=== PATIENT | female | born 1990 | race Caucasian/White ===

== ENCOUNTER 2018-03-23 07:22 | Inpatient (IN) | payer OTHER ==
[~2018-03-23] VITALS: Ht 157.5 cm; Wt 101.2 kg
[2018-03-23] VITALS (8 sets, daily range): BP systolic 108–149; BP diastolic 58–105; Ht 157.5 cm; Wt 101.2 kg
[2018-03-23] MEDS ORDERED: FAMOTIDINE 20 MG/50 ML PREMIX IVPB ONE (07:30)
[2018-03-23] MEDS ORDERED: METOCLOPRAMIDE 10 MG/2 ML SDV IVP ONE (07:30)
[2018-03-23] MEDS ORDERED: cefOXitin/DEX(*) 2GM/50ML PREM 50 ML IVPB ONE (07:30)
[2018-03-23] MEDS ORDERED: LIDOCAINE/SOD BICARB 8.4% SYR ONE (07:57)
[2018-03-23 08:26] LABS: PLATELET COUNT, AUTOMATED 263 K/uL (150-450)
[2018-03-23] MEDS: LR(*) 1000 ML BAG 1,000 ML IV SCH ×4 (08:51→21:20)
[2018-03-23] MEDS ORDERED: ONDANSETRON 4 MG/2 ML VIAL ONE (09:31)
[2018-03-23] MEDS ORDERED: fentaNYL CITR 100 MCG/2 ML AMP ONE (09:31)
[2018-03-23] MEDS ORDERED: OXYTOCIN 10 UNIT/ML SDV ONE (09:31)
[2018-03-23] MEDS ORDERED: MORPHINE PF 5 MG/10 ML AMP ONE (09:31)
--- NOTE | 2018-03-23 10:13 | History & Physical ---
History of Present Illness Age of Patient: 28 : 4 Para or TPAL: 0 EDC per U/S: Apr 13, 2018 Estimated Gestational Age: 37.0 Chief Complaint Twins History of Present Illness Presents for scheduled c/s for twins, di/di. has been entirely uncomplicated for twins. She has been followed closely for complications and growth and has done well. Babies last seen were vtx/br and she elected to deliver by . She is Rh negative and GBS negative. Past Medical, Surgical, Family and Obstetric Histories reviewed. Please see [facility] [place]. History Patient's Blood Type: O Negative Past Medical History: cholycystectomy Allergies: Coded Allergies: benzene (Verified Allergy, Mild, Rash, 03/23/18) Review of Systems All Systems Reviewed/Normal: Yes, Except as Noted Exam General Exam Vital Signs Vital Signs Date Time Temp Pulse Resp B/P (MAP) Pulse Ox O2 Delivery O2 Flow Rate FiO2 03/23/18 08:30 98.0 96 18 149/105 (120) 94 Room Air General Apperance: Alert/Awake/No Acute Distress Neuro: No Gross deficits Cardiovascular: Regular Rate and Rhythm Respiratory: No Respiratory Distress, Clear to Auscultation Abdomen: Soft, Non-Tender, Non-Distended, Gravid - Non-Tender Integumentary: Skin Intact without Lesions or Rash Psychological: Alert & Oriented X3, Appropriate Mood & Affect Fetus Heart Tone Variabilty: Moderate FHT Category: I Medical Decision Making Data Points Result Diagram: 03/23/18 0812 VTE Prophylasis: Adult Deep Vein Thrombosis/Pulmonary: No Pharmacological Contraindicati: Pt at Low Risk for VTE Mechanical Contraindications: Pt at Low Risk for VTE Assessment and Plan Problems: (1) Twin , dichorionic/diamniotic, third trimester Assessment & Plan: delivery by c/s as planned. Reviewed r/b/a and expected recovery. ISAIAH CONNOR MD Mar 23, 2018 10:13
[2018-03-23] MEDS ORDERED: DLR(*) 1000 ML BAG 1,000 ML IV PRN (10:14)
[2018-03-23] MEDS ORDERED: OXYTOCIN 30 UNIT/D5LR 500 ML 500 ML IV PRN (10:14)
[2018-03-23] MEDS ORDERED: ZOLPIDEM TARTRATE 5 MG TAB PO PRN (10:15)
[2018-03-23] MEDS ORDERED: PROMETHAZINE 25 MG/ML 1 ML AMP IVP PRN (10:15)
[2018-03-23] MEDS ORDERED: ACETAMINOPHEN 325 MG TAB PO PRN (10:15)
[2018-03-23] MEDS ORDERED: ONDANSETRON 4 MG/2 ML VIAL IV PRN (10:15)
[2018-03-23] MEDS ORDERED: SIMETHICONE 80 MG CHEW CHEW PRN (10:15)
--- NOTE | 2018-03-23 11:36 | Post Operative Note ---
Operative Note - PLATE CUTTER Operative Day Date: Mar 23, 2018 Time: 11:30 Physicians Surgeon: Michela Monogram Machine Operator: Iqra Gatica Anesthesia: spinal Diagnosis Pre-Op Diagnosis: twins, di/di Post-Op Diagnosis: same Procedure Findings: vtx/breech Procedure(s): Primary LTCS Specimen Removed:(Maybe N/A): placenta Complications: none [id number] Fluids Fluids: 1200 ml Estimated Blood Loss: 500 ml Dictated Date OP Note Dictated: Mar 23, 2018 Time OP Note Dictated: 11:31 Copies to: ISAIAH CONNOR MD ; ISAIAH CONNOR MD Mar 23, 2018 11:36
--- NOTE | 2018-03-23 12:00 | Anesthesia OB Pre-Anes Eval ---
History of Present Illness Anesthesia Start Date: Mar 23, 2018 Anesthesia Start Time: 10:08 OB Anesthesia Diagnosis: primary c/section, other (Twins) EDC: Apr 13, 2018 : 4 Para: 0 Vital Signs: Vital Signs 03/23/18 08:30 Temp 98.0 Pulse 96 Resp 18 B/P (MAP) 149/105 (120) Pulse Ox 94 O2 Delivery Room Air Pain Ratin Result Diagram: 03/23/18 0812 Height (Inches): 62.00 Weight (Pounds): 223 BMI (kg/m2): 42.60 Past Medical History Medical History: no pertinent history Surgical History: cholecystectomy Previous Anesthesia: general Attended Childbirth Classes?: No Hx Anesthesia Reactions: No Hx Family Anesthesia Reaction: No Allergies: Coded Allergies: benzene (Verified Allergy, Mild, Rash, 03/23/18) Anesthesia OB ROS Neurological: No migraines/headaches, No seizures, No neuropathy, No other ENT: Denies Tooth caps, Denies Loose teeth, Denies Chipped teeth, Denies Dentures, Denies Bridges, Denies Retainers, Denies Veneers, Denies Implants, D enies Tongue ring, Denies Other Pulmonary: No asthma, No smoker (pks/day/yrs), No other Airway Class: ll Cardiovascular ROS: No edema, No arrhythmia, No other GI ROS: NPO Last Solids Date: Mar 22, 2018 Last Solids Time: 23:30 ROS: No Herpes, No STD(s), No Liver Disease, No Renal Disease, No Other Endocrine ROS: No diabetes, No gestational diabetes, No thyroid disorder, No other Musculoskeletal ROS: No low back pain, No low back injury, No scoliosis, No other ASA Classification: 3 Assessment and Plan Anesthesia Plan: SAB Anesthesia Stop Day: Mar 23, 2018 Anesthesia Stop Time: 11:48 ROCKY LANDEROS CRNA Mar 23, 2018 12:00
--- NOTE | 2018-03-23 12:08 | OPERATIVE REPORT 1 ---
EVENT DATE: March 23, 2018 SURGEON: Shakir Abernathy MD ANESTHESIOLOGIST: ANESTHESIA: Spinal by Hilary Lee CRNA CREAM SEPARATOR OPERATOR: MARION Hooks PREOPERATIVE DIAGNOSES 1. Twin gestation at 37 weeks, diamniotic dichorionic. 2. Vertex breech presentation. POSTOPERATIVE DIAGNOSES 1. Twin gestation at 37 weeks, diamniotic dichorionic. 2. Vertex breech presentation. PROCEDURE PERFORMED Primary low transverse section via Pfannenstiel skin incision. ESTIMATED BLOOD LOSS 500 cc's. FLUIDS 1200 cc's IV crystalloids. FINDINGS Baby A was vertex along the maternal right side. Baby B was breech along maternal left but delivered in the vertex presentation after A was delivered. Normal appearing uterus, tubes and ovaries. PROCEDURE IN DETAIL The patient was brought to the operating room with a working IV and spinal anesthetic was administered. She was then placed in the dorsal supine position with a leftward tilt and prepped and draped in the usual sterile fashion. Using a knife, a Pfannenstiel skin incision was made and carried through to the underlying rectus fascia. This was nicked in the midline and extended laterally with the James scissors. The rectus muscles were then dissected off the underlying rectus fascia using sharp dissection and then in the midline. The peritoneum was entered sharply and extended superiorly and inferiorly, taking care to avoid injury to the underlying bladder. It was put on lateral stretch. The bladder blade was inserted. The vesicouterine peritoneum was entered sharply and extended laterally. Bladder flap was created digitally. The bladder blade was reinserted, exposing the lower uterine segment of the uterus, which received a low transverse incision carried through to the intraamniotic space. Clear fluid upon amniotomy. The incision was extended bluntly and hand was inserted. The 's head was elevated to the incision. Fundal pressure was applied and the 's head delivered atraumatically. The mouth and nose were bulb suctioned followed by further fundal pressure, effecting delivery of the shoulders and the remainder of the followed without difficulty. Mouth and nose were again bulb suctioned. The cord was clamped, cut and the was passed to awaiting resuscitation team. A cord sample was obtained. Attention was then turned to twin B. My hand was inserted into the uterus and the was encountered in the vertex presentation, having dropped forward after deliver of twin A. Therefore, the baby was further assisted into the vertex presentation and fundal pressure was applied to maintain the head in that location while the amniotomy was performed with clear fluid. Hand was inserted. The 's head was elevated to the incision and then further fundal pressure effected delivery of the head, which was bulb suctioned at the mouth and nose. Further fundal pressure effected delivery of the shoulders and the remainder of the followed. There was a nuchal cord x1 on this and nuchal cord x2 on A. The mouth and nose were further bulb suctioned. The cord was clamped, cut and infant was passed to the awaiting resuscitation team. Cord sample was obtained. The placenta was delivered manually. The uterus was then exteriorized and cleared of all clots and debris. Mederos clamps were placed for hemostasis while the uterine repair was performed with a #1 Monocryl in a running locking stitch. A second suture of the same type was used to imbricate the first layer, completing a two layer closure. This was hemostatic upon completion. The posterior cul-de-sac was irrigated, swept clear of clots and debris. The uterus was returned to the abdomen and bilateral pelvic gutters were irrigated and swept clear of clots and debris. The parietal peritoneum was repaired using 3-0 Vicryl in a running and nonlocking stitch. Rectus muscles were reapproximated in the midline with the same stitch. Muscle bellies were inspected and found to be hemostatic. A few capillary bleeders were cauterized. The rectus fascia was repaired using 0 Vicryl in a running and nonlocking stitch. Subcuticular space was irrigated and swept clean of clots and debris. Capillary bleeders were cauterized while the space was closed with a 3-0 Vicryl Plus in a running nonlocking stitch. Skin incision was repaired with 4-0 Monocryl simple subdermal and covered with Dermabond skin adhesive. She tolerated the procedure well. Sponge, lap, needle and instrument counts were all correct x3. She was taken to recovery in stable condition. YVETTE
[2018-03-23] MEDS ORDERED: PNV1COMB5 (15:20)
[2018-03-23] MEDS ORDERED: FOLI0.8T29 PO (15:20)
[2018-03-23] MEDS ORDERED: IRON1TAB10 PO (15:20)
[2018-03-23] MEDS: KETOROLAC 30 MG/ML VIAL IVP SCH (18:00)
[2018-03-23] MEDS ORDERED: FUROSEMIDE 20 MG/2 ML VIAL IVP ONE (21:20)
[2018-03-23] MEDS: FAMOTIDINE 20 MG TAB PO SCH (21:42)
[2018-03-23] MEDS: DOCUSATE CALCIUM 240 MG CAP PO SCH (21:42)
[2018-03-24 00:20] VITALS: BP 126/84
[2018-03-24] MEDS: KETOROLAC 30 MG/ML VIAL IVP SCH (00:21)
[2018-03-24 02:58] VITALS: BP 117/67
[2018-03-24] MEDS ORDERED: FUROSEMIDE 20 MG/2 ML VIAL IVP ONE (03:30)
[2018-03-24] MEDS: LR(*) 1000 ML BAG 1,000 ML IV SCH ×2 (05:42→10:40)
[2018-03-24] MEDS: IBUPROFEN 800 MG TAB PO SCH ×3 (05:57→21:50)
[2018-03-24 07:08] LABS: PLATELET COUNT, AUTOMATED 234 K/uL (150-450)
[2018-03-24] MEDS: DOCUSATE CALCIUM 240 MG CAP PO SCH ×2 (09:00→20:15)
[2018-03-24] MEDS ORDERED: DIPHTH/TETANUS/ACEL. PERTUSSIS IM ONLY ONE (09:00)
[2018-03-24] MEDS ORDERED: MEASLES,MUMP,RUBELLA VAC 0.5ML SUBQ ONE (09:00)
[2018-03-24] MEDS: FAMOTIDINE 20 MG TAB PO SCH ×2 (09:00→20:15)
[2018-03-24] MEDS ORDERED: INFLUENZA VIRUS VAC 0.5ML SYR IM ONLY ONE (09:00)
[2018-03-24] MEDS: LANOLIN OINT 7 GM TUBE TP PRN (09:01)
[2018-03-24 10:21] VITALS: BP 124/81
--- NOTE | 2018-03-24 10:24 | OB/GYN Progress Note ---
OB Subjective Progress Notes Subjective Feeling well. Pain controlled and ambulating well. Pena removed but no void yet. Baby boy in nursery but improving. Baby girl in room doing well. Mom had low UO last night but resolved with Lasix. Hgb levels anemic but she is asymptomatic and vital stable. GI: NEG Nausea : Voiding Well Pain: Mild OB Objective Physical Exam Vital Signs Date Time Temp Pulse Resp B/P (MAP) Pulse Ox O2 Delivery O2 Flow Rate FiO2 03/24/18 02:58 98.4 81 16 117/67 (84) 97 Nasal Cannula 0.5 Intake and Output 03/24/18 07:00 Intake Total 2000 ml Output Total 4620 ml Balance -2620 ml Intake Oral 0 ml IV Total 2000 ml Output Urine Total 4120 ml Estimated Blood Loss 500 ml General Appearance: Alert/Awake/No Acute Distress Neurological: No Gross deficits Cardiovascular: Normal Rhythm & Peripheral Pulses, Regular Rate and Rhythm Respiratory: No Respiratory Distress, Clear to Auscultation Abdomen: Soft, Non-Tender, Non-Distended, Fundus Firm, Non-Tender Incision: Clean, Dry, Intact Extremities: Edema Integumentary: Skin Intact without Lesions or Rash Psychological: Alert & Oriented X3, Appropriate Mood & Affect Result Diagram: 03/24/18 0634 Assessment and Plan [employer] Plan: Routine Post- Care, Routine Post-Op Care Problems: (1) Twin , dichorionic/diamniotic, third trimester (2) Other specified aftercare following surgery Assessment & Plan: Hopefully home tomorrow or Monday. (3) Anemia due to acute blood loss Assessment & Plan: Pt stable and asymptomatic. Mostly dilutional in my opinion. Will monitor symptoms. ISAIAH CONNOR MD Mar 24, 2018 10:24
--- NOTE | 2018-03-24 12:51 | Anesthesia Post Eval Note ---
Anesthesia Post Eval Note Vital Signs Date Time Temp Pulse Resp B/P (MAP) Pulse Ox O2 Delivery O2 Flow Rate FiO2 03/24/18 10:21 98.6 74 18 124/81 (95) 97 Nasal Cannula 0.5 Pt able to participate in Eval: Yes Cardiovascular Status: Satisfactory Respiratory Status: Satisfactory Pain Managment: Satisfactory PO Nausea/Vomiting: Satisfactory Temperature Management: Satisfactory Mental Status: Satisfactory, Alert, Oriented X3 Post-Op Hydration Status: Satisfactory, Tolerating PO Well, Voiding w/o Difficulty Anesthesia Type: SAB Anesthesia Tolerance: Tolerated procedure well without apparent anesthetic complications. Denies headache or any residual paresthesia. Vital Signs Stable, Patient comfortable and condition stable. Pt. is up to nursery to see baby boy. Ambulating per wc. with assistance. RODOLFO GEORGE CRNA Mar 24, 2018 12:51
[2018-03-24 13:22] VITALS: BP 146/96
[2018-03-24 16:21] VITALS: BP 140/88
[2018-03-24 19:57] VITALS: BP 143/86
[2018-03-25] VITALS (8 sets, daily range): BP systolic 130–156; BP diastolic 78–92
[2018-03-25] MEDS ORDERED: diphenhydrAMINE 25 MG CAP PO PRN ×2 (03:05→04:30)
[2018-03-25] MEDS: IBUPROFEN 800 MG TAB PO SCH ×3 (06:47→21:25)
[2018-03-25] MEDS ORDERED: FERROUS SULFATE 325 MG TAB PO ONE (09:55)
--- NOTE | 2018-03-25 10:10 | OB/GYN Progress Note ---
OB Subjective Progress Notes Subjective Feeling well although tired. Able to ambulate and is passing gas. Abdomen is itchy but no Betadine was used. Benadryl was helpful last night. GI: NEG Nausea : Voiding Well Pain: Mild OB Objective Physical Exam Vital Signs Date Time Temp Pulse Resp B/P (MAP) Pulse Ox O2 Delivery O2 Flow Rate FiO2 03/25/18 07:15 77 98 Nasal Cannula 0.7 03/25/18 02:45 98.0 16 139/91 (107) Intake and Output 03/25/18 06:59 Intake Total 0 ml Output Total 1900 ml Balance -1900 ml Intake Oral 0 ml Output Urine Total 1900 ml # Voids 1 General Appearance: Alert/Awake/No Acute Distress Neurological: No Gross deficits Cardiovascular: Normal Rhythm & Peripheral Pulses, Regular Rate and Rhythm Respiratory: No Respiratory Distress, Clear to Auscultation Abdomen: Soft, Non-Tender, Non-Distended, Fundus Firm, Non-Tender Incision: Clean, Dry, Intact Extremities: Edema Integumentary: Skin Intact without Lesions or Rash Psychological: Alert & Oriented X3, Appropriate Mood & Affect Result Diagram: 03/24/18 0634 Assessment and Plan Problems: (1) Twin , dichorionic/diamniotic, third trimester (2) Other specified aftercare following surgery Assessment & Plan: Remove IV today and continue ambulating and assisting care. Baby B (boy) back to room but with O2. Will need more time so she may be discharged to room in tomorrow. (3) Anemia due to acute blood loss Assessment & Plan: Add iron to oral medications. Continue x 6 weeks. ISAIAH CONNOR MD Mar 25, 2018 10:10
[2018-03-25] MEDS ORDERED: IBUP800T37 PO (10:12)
[2018-03-25] MEDS ORDERED: PER PO (10:12)
[2018-03-25] MEDS: FAMOTIDINE 20 MG TAB PO SCH ×2 (10:58→21:25)
[2018-03-25] MEDS: DOCUSATE CALCIUM 240 MG CAP PO SCH ×2 (10:58→21:25)
[2018-03-25] MEDS: [UNRECOGNIZED DRUG - OTHER] TP SCH (21:25)
[2018-03-26 03:30] VITALS: BP 138/86
[2018-03-26] MEDS: IBUPROFEN 800 MG TAB PO SCH ×2 (06:14→14:18)
--- NOTE | 2018-03-26 08:41 | OB/GYN Progress Note ---
OB Subjective Progress Notes Subjective Doing well. No problems. GI: NEG Nausea : Voiding Well Pain: Mild OB Objective Physical Exam Vital Signs Date Time Temp Pulse Resp B/P (MAP) Pulse Ox O2 Delivery O2 Flow Rate FiO2 03/26/18 04:40 93 96 03/26/18 03:30 16 138/86 (103) Room Air 03/25/18 23:38 97.5 03/25/18 08:40 0.7 Intake and Output 03/26/18 07:00 Intake Total 240 ml Output Total 300 ml Balance -60 ml Intake Oral 240 ml Output Urine Total 300 ml # Voids 1 General Appearance: Alert/Awake/No Acute Distress Neurological: No Gross deficits Cardiovascular: Normal Rhythm & Peripheral Pulses, Regular Rate and Rhythm Respiratory: No Respiratory Distress, Clear to Auscultation Abdomen: Soft, Non-Tender, Non-Distended, Fundus Firm, Non-Tender Incision: Clean, Dry, Intact Extremities: Edema Integumentary: Skin Intact without Lesions or Rash Psychological: Alert & Oriented X3, Appropriate Mood & Affect Result Diagram: 03/24/18 0634 Assessment and Plan Problems: (1) Twin , dichorionic/diamniotic, third trimester (2) Other specified aftercare following surgery Assessment & Plan: Discharge today to room in. (3) Anemia due to acute blood loss ISAIAH CONNOR MD Mar 26, 2018 08:41
[2018-03-26] MEDS: FAMOTIDINE 20 MG TAB PO SCH (09:14)
[2018-03-26] MEDS: DOCUSATE CALCIUM 240 MG CAP PO SCH (09:14)
[2018-03-26] MEDS: [UNRECOGNIZED DRUG - OTHER] TP SCH (09:15)
[2018-03-26] MEDS: LANOLIN OINT 7 GM TUBE TP PRN ×2 (12:25→12:26)
== END 2018-03-26 19:09 | disposition home or self-care (01) | DRG 787 ==
LOC: OB 07:22
PROVIDERS: ADMIT Obstetrics & Gynecology; ATTEND Obstetrics & Gynecology
PROC: 10D00Z1 Extraction of Products of Conception, Low, Open Approach (ICD-10-PCS; principal; 2018-03-23 09:30)
DX: O69.81X1 Labor and delivery complicated by cord around neck, without compression, fetus 1 (principal); O36.0130 Maternal care for anti-D [Rh] antibodies, third trimester, not applicable or unspecified; D62 Acute posthemorrhagic anemia; O69.81X2 Labor and delivery complicated by cord around neck, without compression, fetus 2; O30.043 Twin pregnancy, dichorionic/diamniotic, third trimester; O32.1XX2 Maternal care for breech presentation, fetus 2; O99.214 Obesity complicating childbirth; E66.9 Obesity, unspecified; O90.81 Anemia of the puerperium; Z3A.37 37 weeks gestation of pregnancy; Z37.2 Twins, both liveborn; Z90.49 Acquired absence of other specified parts of digestive tract
CPT/HCPCS: 36415; 85014; 85018; 85025; 86703; 86850; 86870; 86900; 86901; 88307; J0694; J1885; J1940; J2270; J2405; J2590; J2765; J3010; J3490; J7120; Q0163

== ENCOUNTER 2018-04-29 08:12 | Inpatient (IN) | payer OTHER ==
[2018-04-29] VITALS (12 sets, daily range): BP systolic 95–123; BP diastolic 61–77
[~2018-04-29] VITALS: Ht 157.5 cm; Wt 89.8 kg
[~2018-04-29 08:12] MED LIST: FOLI0.8T29 PO; IBUP800T37 PO; IRON1TAB10 PO; PER PO; PNV1COMB5
[2018-04-29] MEDS ORDERED: LR IV ONE (08:30)
--- NOTE | 2018-04-29 08:47 | EKG ---
FACILITY: [facility] PATIENT NAME: CASEY SIMPSON : [id number] MR: [id number] V: [id number] EXAM DATE: ORDERING PHYSICIAN: STEPHANE ARTIS TECHNOLOGIST: BASHIR Test Reason : SOB Blood Pressure : / mmHG Vent. Rate : 112 BPM Atrial Rate : 112 BPM P-R Int : 140 ms QRS Dur : 096 ms QT Int : 332 ms P-R-T Axes : 075 089 053 degrees QTc Int : 453 ms Sinus tachycardia Otherwise normal ECG No previous ECGs available Confirmed by Gael Stock ([id number] on 04/30/2018 12:19:27 AM Referred By: CHANDRA Confirmed By:Gael Myers
[2018-04-29 08:48] LABS: PLATELET COUNT, AUTOMATED 431 K/uL (150-450)
[2018-04-29] MEDS ORDERED: ALBUTEROL/IPRATROPIUM 3 ML NEB NEB ONE ×2 (09:10→12:10)
--- NOTE | 2018-04-29 09:10 | ER Report ---
History and Physical Time Seen By MD: 08:15 Hx. of Stated Complaint: Pt. SOB. O2 sat 75% on room air. Tachypneic. RR 36. Can't speak in full sentences. Tachy, HR 128. Pt. post , had twins via , Mar 23. HPI/ROS CHIEF COMPLAINT: Difficulty breathing HISTORY OF PRESENT ILLNESS: 28-year-old female is one month and uncomplicated twin delivery and is breast-feeding. She presents with shortness of breath in the face of recent URI, cough with productive green sputum. Shortness of breath began at 11:00 last night is continued and progressed throughout the night. She does not have chest pain. She has not had fever. She is somewhat lightheaded. She does not having abdominal pain, nausea, vomiting, UTI symptoms, leg swelling. She has never had a blood clot. She has not had similar symptoms in the past. She has needed an inhaler at times during her , and tried it 6 times overnight without success. REVIEW OF SYSTEMS: Constitutional: No fever, no chills. Eyes: No discharge. ENT: uri symptoms Cardiovascular: No chest pain, no palpitations. Respiratory: above Gastrointestinal: No abdominal pain, no vomiting. Genitourinary: No hematuria. Musculoskeletal: No back pain. Skin: No rashes. Neurological: No headache. Remainder of the 14 system rev: Yes Allergies: Coded Allergies: povidone-iodine (Verified Allergy, Intermediate, RASH, 04/29/18) soap (Verified Allergy, Intermediate, RASH, 04/29/18) Home Meds Reported Medications Albuterol Sulfate 90 Mcg/Act (PROAIR HFA 90 MCG/ACT) 8.5 Gm Hfa.aer.ad, 1-2 PUFF IH PRN PRN for SHORTNESS OF BREATH, INHALER 04/30/18 Ferrous Sulfate (FERROUS SULFATE) 325 Mg Tablet, 325 MG PO QDAY 04/30/18 Discontinued Reported Medications Folic Acid (FOLIC ACID) 0.8 Mg Tablet, 0.8 MG PO 03/23/18 Pnv #116/Iron Fumarate/Fa/Dha (EXPECTA COMBO PACK) 1 Each Combo..pkg 03/23/18 Discontinued Scripts Oxycodone/Acetaminophen (OXYCODONE/ACETAMINOPHEN 5MG/325 MG) 5 Mg/325 Mg Tab, 1- 2 TAB PO Q4H PRN for PAIN, #30 TAB 0 Refills Prov:ISAIAH CONNOR MD 03/25/18 Ibuprofen (IBUPROFEN) 800 Mg Tablet, 800 MG PO Q8H, #30 TAB 0 Refills Prov:ISAIAH CONNOR MD 03/25/18 Reviewed Nurses Notes: Yes Old Medical Records Reviewed: Yes Hx Smoking: No Smoking Status: Never Smoker Exposure to Second Hand Smoke?: No Constitutional Vital Sign - Last 24 Hours 04/29/18 04/29/18 04/29/18 04/29/18 08:18 08:20 08:22 08:27 Pulse 113 120 116 Resp 36 35 44 B/P (MAP) 141/83 141/83 (102) Pulse Ox 95 89 97 O2 Delivery Oxy Mask Oxy Mask O2 Flow Rate 5 04/29/18 04/29/18 04/29/18 04/29/18 08:32 08:37 08:42 08:47 Pulse 115 114 118 114 Resp 53 25 25 30 B/P (MAP) 129/83 (98) Pulse Ox 95 92 93 93 04/29/18 04/29/18 04/29/18 04/29/18 08:52 08:57 09:12 09:15 Pulse 113 109 Resp 26 40 B/P (MAP) 104/81 (89) Pulse Ox 94 95 96 04/29/18 04/29/18 04/29/18 04/29/18 09:17 09:22 09:24 09:24 Pulse 107 109 106 Resp 27 33 24 Pulse Ox 93 94 95 O2 Delivery Oxy Mask O2 Flow Rate 5.0 04/29/18 04/29/18 04/29/18 04/29/18 09:27 09:30 09:32 09:32 Pulse 107 120 118 Resp 24 20 32 B/P (MAP) 123/79 (94) Pulse Ox 97 97 04/29/18 04/29/18 04/29/18 04/29/18 09:37 09:42 09:45 09:47 Pulse 116 109 109 Resp 17 26 24 B/P (MAP) 129/85 (100) Pulse Ox 96 95 95 04/29/18 04/29/18 04/29/18 04/29/18 09:52 09:57 10:00 10:02 Pulse 117 109 111 Resp 19 25 24 B/P (MAP) 114/79 (91) Pulse Ox 93 92 92 04/29/18 04/29/18 04/29/18 04/29/18 10:07 10:12 10:15 10:17 Pulse 114 106 109 Resp 25 25 32 B/P (MAP) 119/82 (94) Pulse Ox 94 94 04/29/18 04/29/18 04/29/18 04/29/18 10:22 10:27 10:30 10:32 Pulse 76 108 111 Resp 32 35 33 B/P (MAP) 126/79 (95) Pulse Ox 94 94 91 04/29/18 04/29/18 04/29/18 04/29/18 10:52 10:57 11:00 11:02 Pulse 104 102 Resp 12 26 23 B/P (MAP) 119/77 (91) 04/29/18 04/29/18 04/29/18 04/29/18 11:07 11:12 11:15 11:17 Pulse 102 102 109 Resp 25 21 21 B/P (MAP) 109/84 (92) Pulse Ox 92 04/29/18 04/29/18 04/29/18 04/29/18 11:22 11:27 11:32 11:37 Pulse 103 103 104 101 Resp 24 28 23 24 Pulse Ox 91 90 91 90 04/29/18 04/29/18 04/29/18 04/29/18 11:42 11:45 11:47 11:52 Pulse 107 109 110 Resp 22 46 24 B/P (MAP) 130/83 (99) Pulse Ox 93 94 93 04/29/18 04/29/18 04/29/18 04/29/18 11:57 12:00 12:02 12:07 Pulse 107 107 107 Resp 26 84 49 B/P (MAP) 126/77 (93) Pulse Ox 93 92 93 04/29/18 12:12 Pulse 113 Resp 56 Pulse Ox 90 Physical Exam General Appearance: The patient is alert, has no immediate need for airway protection and no signs of toxicity. [ ] Eyes: Pupils equal and round no pallor or injection. ENT, Mouth: Mucous membranes are moist. Respiratory: rll ronchi, tachypneic Cardiovascular: tachycardia, no m/r/g, no pallor Gastrointestinal: Abdomen is soft and non tender, no masses, bowel sounds normal. Neurological: alert, oriented, reinoso Skin: Warm and dry, no rashes. Musculoskeletal: Neck is supple non tender. Extremities are nontender, nonswollen and have full range of motion. DIFFERENTIAL DIAGNOSIS: After history and physical exam differential diagnosis was considered for adult fever including but not limited to viral syndromes including influenza, urinary tract infection, pneumonia and sepsis, PE, acs Medical Decision Making Data Points Result Diagram: 04/30/18 0455 04/30/18 0455 Laboratory Hematology Test 04/29/18 08:25 04/29/18 08:37 D-Dimer Quantitative (PE/DVT) 1.13 ug/ml (0-0.50) Lactate 1.4 mmol/L (0.7-2.1) Influenza Virus Type A (PCR) Negative (NEGATIVE) Influenza Virus Type B (PCR) Negative (NEGATIVE) Chemistry Test 04/29/18 08:25 04/29/18 08:37 D-Dimer Quantitative (PE/DVT) 1.13 ug/ml (0-0.50) Lactate 1.4 mmol/L (0.7-2.1) Influenza Virus Type A (PCR) Negative (NEGATIVE) Influenza Virus Type B (PCR) Negative (NEGATIVE) Coagulation Test 04/29/18 08:25 D-Dimer Quantitative (PE/DVT) 1.13 ug/ml Microbiology Microbiology Date/Time Source Procedure Growth Status 04/29/18 08:51 Blood Blood Culture - Preliminary NO GROWTH AFTER 1 DAY, REINCUBATED Resulted 04/29/18 08:45 Blood Peripheral Draw Blood Culture - Preliminary NO GROWTH AFTER 1 DAY, REINCUBATED Resulted EKG/Imaging EKG Interpretation 12 lead EKG: Rhythm: sinus tachycardia [place]: normal QRS: normal ST segments: borderline st depression v4-6. Borderline qt [ ] Monitor Interpretation: Sinus Tachycardia ED Course/Re-evaluation ED Course 28-year-old female presents hypoxic, dyspneic with symptoms consistent with infectious etiology. After x-rays unremarkable so CT is ordered to evaluate for PE or subtle pneumonia. CT shows multilobar pneumonia, however given atypical appearance, including differential or septic emboli. Patient is continued on oxygen in the emergency department with 8 L of a Ventimask and tolerates this I administered broad-spectrum antibiotics for the potential for hospital-acquired pneumonia given her recent delivery. She is otherwise hemodynamically stable on admission to ICU. Decision to Disposition Date: Apr 29, 2018 Decision to Disposition Time: 09:10 Critical Care Time I spent a total of 65 minutes of critical care time in obtaining history, performing a physical exam, bedside monitoring of interventions, collecting and interpreting tests and discussion with consultants but not including time spent performing procedures. Depart Departure Latest Vital Signs Vital Signs Date Time Temp Pulse Resp B/P (MAP) Pulse Ox O2 Delivery O2 Flow Rate FiO2 04/29/18 12:12 113 56 90 04/29/18 12:00 126/77 (93) 04/29/18 09:24 Oxy Mask 5.0 Impression: Primary Impression: Pneumonia Condition: Condition Unchanged Disposition: Admitted from ER Referrals: ISAIAH CONNOR MD (PCP) Problem Qualifiers Primary Impression: Pneumonia Pneumonia type: due to unspecified organism Laterality: bilateral Lung location: unspecified part of lung Qualified Codes: J18.9 - Pneumonia, unspecified organism STEPHANE ARTIS MD Apr 29, 2018 09:10
[2018-04-29] MEDS ORDERED: methylPREDNIS SUCC 125 MG/2ML IVP ONE (09:15)
--- NOTE | 2018-04-29 09:27 | RADIOLOGY IMAGING REPORT ---
[place] [facility] [place] NAME: Monie Victor : 1990 MR: [id number] V: [id number] EXAM DATE: ORDERING PHYSICIAN: STEPHANE ARTIS TECHNOLOGIST: Location: [facility] Patient: Monie Victor : 1990 Visit/Account:[id number] Date of Sevice: 04/29/2018 EXAMINATION: PA and Lateral Chest 04/29/2018 8:28 AM HISTORY: dyspnea, decreased r sided breath sounds COMPARISON: None FINDINGS: Cardiomediastinal contours: Normal Lungs and pleura: Normal Bones/soft tissues: Normal Right upper quadrant cholecystectomy clips. IMPRESSION: No acute cardiopulmonary abnormality. Report Dictated By: Joseph Everett MD at 04/29/2018 9:21 AM Report E-Signed By: Joseph Everett MD at 04/29/2018 9:22 AM [id number]
[2018-04-29] MEDS ORDERED: IOPAMIDOL 76% 100 ML INFUS BTL 100 ML ONE (10:07)
[2018-04-29] MEDS ORDERED: NS(*) 0.9% 50 ML BAG 50 ML ONE (10:07)
[2018-04-29] MEDS ORDERED: diphenhydrAMINE 50 MG/ML VIAL IVP ONE (10:25)
--- NOTE | 2018-04-29 11:52 | RADIOLOGY IMAGING REPORT ---
FACILITY: [facility] PATIENT NAME: Monie Victor : 1990 MR: [id number] V: [id number] EXAM DATE: ORDERING PHYSICIAN: STEPHANE ARTIS TECHNOLOGIST: Location: [facility] Patient: Monie Victor : 1990 Visit/Account:[id number] Date of Sevice: 04/29/2018 CT CTA CHEST W & W/O CON HISTORY: tachypnea, hypoxia, elevated dimer TECHNIQUE: CTA chest with intravenous contrast attention to pulmonary arteries. Sagittal, coronal a nd slab 3D MIP coronal reconstructed images were also created for further evaluation and interpretati on. CONTRAST: Iopamidol 370 100 mls. One of the following dose optimization techniques was utilized in the performance of this exam: Autom ated exposure control; adjustment of the mA and/or kV according to the patient's size; or use of an i terative reconstruction technique. Specific details can be referenced in the facility's radiology C T exam operational policy. COMPARISON: Chest x-ray April 29, 2018. FINDINGS: Heart/coronary vessels: The heart is normal. There is no pericardial effusion. Pulmonary arteries: There are no filling defects in the pulmonary vessels to suggest pulmonary embolu s. Thoracic aorta: No aortic dissection or atherosclerotic change. Mediastinum: There is a small hiatal hernia. There is no mediastinal or hilar lymphadenopathy. The t hyroid gland is unremarkable. Lymph nodes: Negative. Lungs/pleura: There is an infiltrate in the lingula. Smaller infiltrates or focal densities are note d in the right middle lobe, right upper lobe, superior segment of the right lower lobe and perhaps th e superior segment of the left lower lobe. There is no pleural effusion. Visualized upper abdomen: Surgical clips are noted in the gallbladder fossa related to prior cholecy stectomy. Bones/soft tissues: No vertebral body compression fracture is seen. IMPRESSION: 1. No findings of a filling defect in the pulmonary arteries to suggest pulmonary embolus. 2. Scattered foci of lung parenchymal density worrisome for pneumonia or alternative sites of multifo robert disease such as Marisabel's granulomatosis, septic emboli, alveolitis of undefined etiology, pulmon lloyd hemorrhage, etc. There is no pleural effusion or lymphadenopathy. There is no interstitial lung d isease. 3. Status post cholecystectomy. Results were called to STEPHANE ARTIS M.D. At 04/29/2018 11:04 AM. Report Dictated By: Joaquin Lua MD at 04/29/2018 10:59 AM Report E-Signed By: Joaquin Lua MD at 04/29/2018 11:48 AM WSN:[id number]
[2018-04-29] MEDS ORDERED: CEFEPIME HCL 2 GM VIAL IVP ONE (12:00)
[2018-04-29] MEDS ORDERED: ACETAMINOPHEN 325 MG TAB PO PRN (16:20)
[2018-04-29] MEDS ORDERED: LR(*) 1000 ML BAG 1,000 ML IV ONE (16:20)
[2018-04-29] MEDS ORDERED: FLUSH 10 ML SYR IVP PRN (16:20)
--- NOTE | 2018-04-29 16:44 | History & Physical ---
History of Present Illness Chief Complaint dyspnea History of Present Illness 28F presented with dyspnea. PMHx significant for some asthma diagnosed during and uncomplicated 1 month ago delivering twins. Reports 1 day increasing URI symptoms for shich she used albuterol inhaler. This provided little relief and as she felt more SOB she came to ER. Notede to sat 70's on RA on arrival with tachycardia and tachypnea. D-dimer was in positive range but CTA was negative for emboli. CXR negative for acute pathology but CTA showed possible multifocal PNA vs septic emboli vs MPA. Denies any history of recurrent URI infections or family history of rheumatoid disorders. She does report pain in bilateral hands and wrists since thought to be tendonitis. History Home Meds Active Scripts Oxycodone/Acetaminophen (OXYCODONE/ACETAMINOPHEN 5MG/325 MG) 5 Mg/325 Mg Tab, 1- 2 TAB PO Q4H PRN for PAIN, #30 TAB 0 Refills Prov:ISAIAH CONNOR MD 03/25/18 Ibuprofen (IBUPROFEN) 800 Mg Tablet, 800 MG PO Q8H, #30 TAB 0 Refills Prov:ISAIAH CONNOR MD 03/25/18 Reported Medications Folic Acid (FOLIC ACID) 0.8 Mg Tablet, 0.8 MG PO 03/23/18 Pnv #116/Iron Fumarate/Fa/Dha (EXPECTA COMBO PACK) 1 Each Combo..pkg 03/23/18 Allergies: Coded Allergies: povidone-iodine (Verified Allergy, Intermediate, RASH, 04/29/18) soap (Verified Allergy, Intermediate, RASH, 04/29/18) Patient History: FH: thyroid condition Hx Smoking: No Smoking Status: Never Smoker Exposure to Second Hand Smoke?: No Review of Systems All Systems Reviewed/Normal: Yes, Except as Noted Constitutional: No Fever, No Chills Respiratory: Shortness of Breath, Cough Gastrointestinal: No Nausea, No Vomiting Exam Vital Signs Vital Signs Date Time Temp Pulse Resp B/P (MAP) Pulse Ox O2 Delivery O2 Flow Rate FiO2 04/29/18 15:00 108 29 115/66 (82) 94 Oxy Mask 5.0 04/29/18 13:13 98.6 General Appearance: Alert, Awake, No Acute Distress, Afebrile Neuro: No Gross deficits ENT: Normal Cardiovascular: Other (tachycardic) Respiratory: Other (coarse breathsounds and expiratory wheeze.) GI: Abd Soft and Non-Tender Extremities: Soft and Non Tender, Warm, Pulses, Perfused; No Edema Integumentary: Skin Intact without Lesion / Mass Medical Decision Making Data Points Result Diagram: 04/29/1882404/29/18824 EKG / Imaging EKG Interpretation NSR Monitor Interpretation: Sinus Tachycardia Assessment and Plan Problems: (1) Acute respiratory failure with hypoxia Assessment & Plan: Presumed to multifocal pneumonia, presentation atypical. CTA negative for emboli but evidence multifocal pneumonia. Begin empiric ceftriaxone and azithromycin, breathing treatments, steroid, supplemental O2. ANCA, rheumatoid factor, GET ordered. Blood cultures pending. (2) Pneumonia Status: Acute Assessment & Plan: As above. Venous Thromboembolism Antithrombotics Is Pt On Any Antithrombotics?: Yes Exam Sepsis Risk: Possible Sepsis Risk DEMETRIO MARVIN DO Apr 29, 2018 16:44
[2018-04-29] MEDS ORDERED: NS(*) 0.9% 500 ML BAG 500 ML IV PRN (16:55)
[2018-04-29] MEDS: AZITHROMYCIN(*) 500 MG 500 MG in NS(*) 0.9% 250 ML BAG 250 ML IVPB SCH (17:25)
[2018-04-29] MEDS: ALBUTEROL/IPRATROPIUM 3 ML NEB NEB SCH (18:13)
[2018-04-29] MEDS: cefTRIAXone 2 GM VIAL IVP SCH (20:40)
[2018-04-29] MEDS: ALBUTEROL 2.5 MG/3 ML NEB NEB PRN (21:55)
[2018-04-30] VITALS (22 sets, daily range): BP systolic 99–127; BP diastolic 64–87; Ht 157.5 cm; Wt 89.8 kg
[2018-04-30] MEDS: ALBUTEROL/IPRATROPIUM 3 ML NEB NEB SCH ×7 (00:32→22:30)
[2018-04-30] MEDS: ALBUTEROL 2.5 MG/3 ML NEB NEB PRN (03:55)
[2018-04-30 05:29] LABS: PLATELET COUNT, AUTOMATED 337 K/uL (150-450)
--- NOTE | 2018-04-30 07:01 | RADIOLOGY IMAGING REPORT ---
FACILITY: [facility] [place] PATIENT NAME: Monie Victor : 1990 MR: [id number] V: [id number] EXAM DATE: ORDERING PHYSICIAN: DEMETRIO GONZALEZ TECHNOLOGIST: Location: [facility] [place] Patient: Monie Victor : 1990 Visit/Account:[id number] Date of Sevice: 04/30/2018 CHEST PA LAT HISTORY: Hypoxia COMPARISON: 04/29/2018. Chest CT dated 04/29/2018. FINDINGS: Lines/tubes: None. Lungs/pleura: Stable mild patchy opacities in the lungs compared with the recent chest CT. Heart: Negative. Mediastinum: Negative. Bony structures/body wall: Negative. IMPRESSION: Stable mild patchy opacities in the lungs compared with the recent chest CT. Otherwise no acute cardiopulmonary process. Report Dictated By: Sonido Foley MD at 04/30/2018 6:53 AM Report E-Signed By: Sonido Foley MD at 04/30/2018 6:56 AM WSN:[id number]
[2018-04-30] MEDS ORDERED: FERR-53 PO (08:01)
[2018-04-30] MEDS ORDERED: ALBU8.5H IH (08:01)
--- NOTE | 2018-04-30 08:30 | Hospitalist Progress Note ---
Subjective Progress Notes Subjective She reports feeling improved. Less dyspnea/cough. O2 requirement has improved. Physical Exam Vital Signs Date Time Temp Pulse Resp B/P (MAP) Pulse Ox O2 Delivery O2 Flow Rate FiO2 04/30/18 07:10 91 Oxy Mask 3.0 04/30/18 07:08 100 18 04/30/18 07:00 97.7 107/78 (88) Intake and Output 04/30/18 07:00 Intake Total 2326 ml Output Total 1450 ml Balance 876 ml Intake Oral 1085 ml IV Total 1241 ml Output Urine Total 1450 ml # Voids 3 # Bowel Movements 1 General Appearance: Alert, Awake Cardiovascular: Regular Rate and Rhythm Respiratory: Other (few scattered rhonchi otherwise clear) Extremities: Warm, Perfused Psych: Alert & Oriented X3 Result Diagram: 04/30/18 0455 04/30/18 0455 Monitor Interpretation: Normal Sinus Rhythm Assessment and Plan Problems: (1) Pneumonia Status: Acute Assessment & Plan: Clinically improved. Appears to be a multifocal, atypical pneumonia. CT pulmonary angiogram negative for emboli, but evidence multifocal infiltrates. She is currently on IV ceftriaxone and azithromycin, respiratory treatments, steroids, supplemental O2. Due to atypical presentation - ANCA, rheumatoid factor, and GET have been ordered. Blood cultures negative thus far. (2) Mother currently breast-feeding Status: Acute Assessment & Plan: Pharmacy reviewed medications and reports it should be acceptable to continue , but will need to watch infants closely for any problems (especially GI). Discussed this with the patient and she understands. Exam Sepsis Risk: Sepsis Risk ELIS SMITH MD Apr 30, 2018 08:30
[2018-04-30] MEDS: predniSONE 20 MG TAB PO SCH (08:47)
[2018-04-30] MEDS: ENOXAPARIN 40 MG/0.4ML SYR SC SCH (08:48)
[2018-04-30] MEDS ORDERED: cefTRIAXone 2 GM VIAL IVP SCH (09:00)
[2018-04-30] MEDS: AZITHROMYCIN(*) 500 MG 500 MG in NS(*) 0.9% 250 ML BAG 250 ML IVPB SCH (17:04)
[2018-04-30] MEDS ORDERED: NS(*) 0.9% 250 ML BAG 250 ML IV PRN (17:40)
[2018-04-30] MEDS: cefTRIAXone 2 GM VIAL IVP SCH (21:05)
[2018-05-01] VITALS: BP 108/62
[2018-05-01 04:00] VITALS: BP 107/72
[2018-05-01 05:04] LABS: PLATELET COUNT, AUTOMATED 346 K/uL (150-450)
[2018-05-01] MEDS: ALBUTEROL/IPRATROPIUM 3 ML NEB NEB SCH ×2 (05:49→11:09)
[2018-05-01 08:00] VITALS: BP 109/76
--- NOTE | 2018-05-01 08:40 | Antimicrobial Stewardship ---
Antimicrobial Stewardship Empiricly appropriate: Yes (CAP - s/p delivery 1 month ago) Significant PMH: Yes (Asthma) Support empiric regimen: Yes (Ceftriaxone + azithromycin) Approriate Cultures done: Yes (Blood Cx x 2 - NGTD) Determine cumulative duration: Today is day 3 of therapy Determine standard duration: Duration of therapy 5-7 days Comment 28 yo F s/p c section delivery in March 2018, who presented with SOB, hypoxia, and green sputum. Tmax afebrile WBC 15.4 -->10 Neuts 86.3 % --> 68.8% ESR 61 CRP 7 D-dimer 1.13 Influenza (--) UA (-) Rheumatology Panel - pending Echo - normal Xray shows mild patchy infiltrates CT shows scattered focal opacities (Marisabel's/septic emboli/pneumonia) Plan continue treatment for CAP with Ceftriaxone + azithromycin, plan treatment for 5-7 days. Switch to po today, cefdinir + azithromycin. Continue steroids, plan oral prednisone with taper, inhalers, and antibiotics. Lali Argueta, PharmD, BCOP LALI ARGUETA May 01, 2018 08:40
[2018-05-01] MEDS: predniSONE 20 MG TAB PO SCH (09:23)
[2018-05-01] MEDS: ENOXAPARIN 40 MG/0.4ML SYR SC SCH (09:24)
[2018-05-01] MEDS ORDERED: CEF300 PO (13:21)
[2018-05-01] MEDS ORDERED: AZIT-17 PO (13:21)
[2018-05-01] MEDS ORDERED: PRED20TA6 PO (13:21)
[2018-05-01] MEDS ORDERED: IPRA3AMP10 IH (13:25)
--- NOTE | 2018-05-01 13:29 | Hospitalist Depart ---
Discharge Summary Reason for Hosp/Final Diag: (1) Pneumonia Status: Acute Hospital Course & Plan: Clinically improved. Appears to be a multifocal, atypical pneumonia. CT pulmonary angiogram negative for emboli, but evidence multifocal infiltrates. She was started on IV ceftriaxone and azithromycin, respiratory treatments, steroids, supplemental O2. Due to atypical presentation - ANCA, rheumatoid factor, and GET have been ordered. Blood cultures negative to date. Discharged with PO azithromycin and cefdinir. (2) Mother currently breast-feeding Status: Acute Hospital Course & Plan: Pharmacy reviewed medications and reports it should be acceptable to continue , but will need to watch infants closely for any problems (especially GI). Discussed this with the patient and she understands. Departure Weight (Pounds): 198 Result Diagram: 05/01/1844805/01/18448 Condition: Improved Discharge: Home Discharge Instructions Home Meds Active Scripts Ipratropium/Albuterol Sulfate (IPRAT-ALBUT 0.5-3(2.5) MG/3 ML) 3 Ml Ampul.neb, 3 ML IH Q6H PRN for DYSPNEA for 30 Days, #30 Prov:DEMETRIO MARVIN DO 05/01/18 Prednisone (PREDNISONE) 20 Mg Tablet, 40 MG PO QDAY for 7 Days, #14 TAB Prov:DEMETRIO MARVIN DO 05/01/18 Azithromycin (Z-PACK) 250 Mg Tablet, 0 PO QDAY, #6 DOSE-PACK Prov:DEMETRIO MARVIN DO 05/01/18 Cefdinir 300 Mg Cap (OMNICEF 300 MG CAP (OR EQUIV)) 300 Mg Cap, 300 MG PO BID for 5 Days, #10 CAP Prov:DEMETRIO MARVIN DO 05/01/18 Reported Medications Albuterol Sulfate 90 Mcg/Act (PROAIR HFA 90 MCG/ACT) 8.5 Gm Hfa.aer.ad, 1-2 PUFF IH PRN PRN for SHORTNESS OF BREATH, INHALER 04/30/18 Ferrous Sulfate (FERROUS SULFATE) 325 Mg Tablet, 325 MG PO QDAY 04/30/18 Discontinued Reported Medications Folic Acid (FOLIC ACID) 0.8 Mg Tablet, 0.8 MG PO 03/23/18 Pnv #116/Iron Fumarate/Fa/Dha (EXPECTA COMBO PACK) 1 Each Combo..pkg 03/23/18 Discontinued Scripts Oxycodone/Acetaminophen (OXYCODONE/ACETAMINOPHEN 5MG/325 MG) 5 Mg/325 Mg Tab, 1- 2 TAB PO Q4H PRN for PAIN, #30 TAB 0 Refills Prov:ISAIAH CONNOR MD 03/25/18 Ibuprofen (IBUPROFEN) 800 Mg Tablet, 800 MG PO Q8H, #30 TAB 0 Refills Prov:ISAIAH CONNOR MD 03/25/18 Diet: Regular Activity: As Tolerated Special Instructions: You were started on antibiotics, prednisone, breathing treatments for pneumonia. Please follow up with PCP. You were started on supplemental oxygen, follow up with primary care to evaluate ongoing need. Copies to: ISAIAH CONNOR MD ; Venous Thromboembolism Antithrombotics Is Pt On Any Antithrombotics?: Yes Problem Qualifiers (1) Pneumonia: Pneumonia type: due to unspecified organism Laterality: bilateral Lung location: unspecified part of lung Qualified Codes: J18.9 - Pneumonia, unspecified organism DEMETRIO MARVIN DO May 01, 2018 13:29
== END 2018-05-01 14:00 | disposition home or self-care (01) | DRG 193 ==
LOC: ER 08:27 → ICU 12:13
PROVIDERS: ADMIT Internal Medicine; ATTEND Internal Medicine
DX: J18.9 Pneumonia, unspecified organism (principal); J96.01 Acute respiratory failure with hypoxia; Z88.8 Allergy status to other drugs, medicaments and biological substances; Z90.49 Acquired absence of other specified parts of digestive tract
CPT/HCPCS: 36415; 71046; 71275; 81001; 81025; 82040; 82247; 82310; 82374; 82435; 82565; 82947; 83605; 84075; 84132; 84155; 84295; 84450; 84460; 84520; 85025; 85379; 85651; 86038; 86140; 86255; 86430; 87040; 87502; 93005; 93306; 94640; 94667; 94668; 96361; 96374; 96375; 99291; J0456; J0692; J0696; J1200; J1650; J2930; J7050; J7120; J7512; J7613; Q9967

== ENCOUNTER → 2018-07-18 | Outpatient (CLI) | payer OTHER ==
[2018-04-30 08:46] VITALS: BMI 36.2
[~2018-07-18] MED LIST changes: +ALBU8.5H IH; +AZIT-17 PO; +CEF300 PO; +FERR-53 PO; +IPRA3AMP10 IH; +PRED20TA6 PO
--- NOTE | 2018-07-18 15:27 | RADIOLOGY IMAGING REPORT ---
FACILITY: [facility] - [place] PATIENT NAME: Monie Victor : 1990 MR: [id number] V: [id number] EXAM DATE: ORDERING PHYSICIAN: GABRIELLE TERRELL TECHNOLOGIST: [place] [facility] [place]: Monie Victor : 1990 Visit/Account:[id number] Date of Sevice: 07/18/2018 2 VIEWS CHEST INDICATION: Wheezing and shortness of breath. COMPARISON: April 30, 2018. FINDINGS: Heart size within normal limits. There is no focal infiltrate or lobar consolidation. There is no pneumothorax or pleural effusion. IMPRESSION: 1. No acute cardiopulmonary process. Report Dictated By: Nishant Abdi MD at 07/18/2018 3:21 PM Report E-Signed By: Nishant Abdi MD at 07/18/2018 3:22 PM WSN:[email or web address]
== END ==
LOC: RAD 14:48
PROVIDERS: ATTEND Nurse Practitioner Family
DX: R06.02 Shortness of breath (principal); R06.2 Wheezing
CPT/HCPCS: 71046